=== PATIENT | male | born 1955 | race Caucasian/White ===

== ENCOUNTER 2018-08-03 18:00 | Observation (INO) | payer OTHER ==
[2018-08-03 18:00] VITALS: BMI 31.4
[2018-08-03] MEDS ORDERED: Sodium Chloride 0.9% 1,000 ML IV ONE (20:01)
[2018-08-03] MEDS ORDERED: SODIUM CHLORIDE 0.9% ONE (20:18)
[2018-08-03 20:23] LABS: BASO # 0.1 K/uL (0.0-0.2); BASO % 0.9 % (0.0-2.0); EOS # 1.5 K/uL (0.0-0.7); EOS % 10.9 % (0.0-4.0); HEMOGLOBIN 14.8 g/dL (12.0-18.0); LYMPH # 4.6 K/uL (1.0-4.3); LYMPH % 33.7 % (20.0-40.0); MEAN CELL VOLUME 93.4 fL (80.0-94.0); MEAN CORPUSCULAR HEMOGLOBIN 30.7 pg (27.0-31.0); MEAN CORPUSCULAR HGB CONC 32.9 g/dL (33.0-37.0); MEAN PLATELET VOLUME 8.4 fL (7.2-11.7); MONO % 7.2 % (0.0-10.0); NEUT # 6.5 K/uL (1.8-7.0); NEUT % 47.3 % (50.0-75.0); NRBC % 0.1 % (0.0-2.0); RBC 4.83 Mil/uL (4.40-5.90); RED CELL DISTRIBUTION WIDTH 14.2 % (11.5-14.5); WHITE BLOOD COUNT 13.7 K/uL (4.8-10.8)
[2018-08-03 20:32] LABS: SQUAMOUS EPITHIAL < 1 /hpf (0-5); URINE AMORPHOUS SEDIMENT FEW /ul (<OCC); URINE BILIRUBIN NEGATIVE (NEGATIVE); URINE BLOOD NEGATIVE (NEGATIVE); URINE CLARITY Clear (Clear); URINE COLOR Yellow (YELLOW); URINE GLUCOSE (UA) NORMAL (Normal); URINE LEUKOCYTE ESTERASE NEG Leu/uL (Negative); URINE PROTEIN NEGATIVE (NEGATIVE); URINE UROBILINOGEN NORMAL mg/dL (0.2-1.0)
[2018-08-03 20:35] LABS: ALB/GLOB RATIO 1.3 (1.0-2.1); ALBUMIN 4.5 g/dL (3.5-5.0); ALT/SGPT 107 U/L (21-72); AST/SGOT 72 U/L (17-59); BLOOD UREA NITROGEN 13 mg/dL (9-20); CALCIUM 10.1 mg/dl (8.6-10.4); GFR NON-AFRICAN AMERICAN > 60; LIPASE 87 U/L (23-300)
--- NOTE | 2018-08-03 21:02 | C.PDOC ---
History Of Present Illness 63 year old male presents to ED with complaint of left sided flank and abdominal pain that he has had for months, but has worsened in the past 2 days. Patient states that he has not been eating much, but has still been gaining weight. Patient states that he snores at night and has presumed sleep apnea. Patient denies nausea, vomiting, diarrhea, fever, chills, and diaphoresis. Time Seen by Provider: 08/03/18 19:52 Chief Complaint (Nursing): Abdominal Pain History Per: Patient History/Exam Limitations: no limitations Onset/Duration Of Symptoms: Days (2) Current Symptoms Are (Timing): Still Present Location Of Pain/Discomfort: LUQ, LLQ, Other (left sided flank pain ) Quality Of Discomfort: "Pain" Associated Symptoms: denies: Fever, Chills, Nausea, Diarrhea Exacerbating Factors: None Alleviating Factors: None Past Medical History Reviewed: Historical Data, Nursing Documentation, Vital Signs Vital Signs: Last Vital Signs Temp 98.2 F 08/03/18 18:25 Pulse 96 H 08/03/18 18:25 Resp 20 08/03/18 18:25 BP 162/94 H 08/03/18 18:25 Pulse Ox 95 08/03/18 18:25 - Medical History PMH: HTN Denies: Chronic Kidney Disease Surgical History: No Surg Hx Family History: States: Unknown Family Hx - Social History Hx Tobacco Use: No Hx Alcohol Use: No Hx Substance Use: No - Immunization History Hx Tetanus Toxoid Vaccination: Yes Hx Influenza Vaccination: Yes Hx Pneumococcal Vaccination: No Review Of Systems Constitutional: Positive for: Other (decreased appetite and weight gain ). Negative for: Fever, Chills, Weakness Gastrointestinal: Positive for: Abdominal Pain (left sided abdominal and left sided flank pain ). Negative for: Nausea, Vomiting Neurological: Negative for: Weakness, Numbness, Dizziness Physical Exam - Physical Exam Appears: Non-toxic, Other (obese, male; mild distress) Skin: Normal Color, Warm, Dry Head: Atraumatic, Normacephalic Neck: Normal ROM, Supple Chest: Symmetrical, No Deformity Cardiovascular: Rhythm Regular, No Murmur Respiratory: No Accessory Muscle Use Gastrointestinal/Abdominal: Tenderness (left lateral tenderness) Extremity: Capillary Refill (<2 seconds) Neurological/Psych: Oriented x3, Normal Speech, Normal Cognition ED Course And Treatment - Laboratory Results Result Diagrams: 08/03/18 20:16 08/03/18 20:16 Lab Results: Total Bilirubin 0.3 mg/dL (0.2-1.3) 08/03/18 20:16 AST 72 U/L (17-59) H 08/03/18 20:16 ALT 107 U/L (21-72) H 08/03/18 20:16 Alkaline Phosphatase 100 U/L (38-126) 08/03/18 20:16 Total Protein 7.9 g/dL (6.3-8.3) 08/03/18 20:16 Albumin 4.5 g/dL (3.5-5.0) 08/03/18 20:16 Globulin 3.4 gm/dL (2.2-3.9) 08/03/18 20:16 Albumin/Globulin Ratio 1.3 (1.0-2.1) 08/03/18 20:16 Lipase 87 U/L (23-300) 08/03/18 20:16 Urine Color Yellow (YELLOW) 08/03/18 20:16 Urine Clarity Clear (Clear) 08/03/18 20:16 Urine pH 7.0 (5.0-8.0) 08/03/18 20:16 Ur Specific [place] 1.010 (1.003-1.030) 08/03/18 20:16 Urine Protein Negative mg/dL (NEGATIVE) 08/03/18 20:16 Urine Glucose (UA) Normal mg/dL (Normal) 08/03/18 20:16 Urine Ketones Negative mg/dL (NEGATIVE) 08/03/18 20:16 Urine Blood Negative (NEGATIVE) 08/03/18 20:16 Urine Nitrate Negative (NEGATIVE) 08/03/18 20:16 Urine Bilirubin Negative (NEGATIVE) 08/03/18 20:16 Urine Urobilinogen Normal mg/dL (0.2-1.0) 08/03/18 20:16 Ur Leukocyte Esterase Neg [place]/uL (Negative) 08/03/18 20:16 Urine WBC (Auto) 1 /hpf (0-5) 08/03/18 20:16 Urine RBC (Auto) 2 /hpf (0-3) 08/03/18 20:16 Ur Squamous Epith Cells < 1 /hpf (0-5) 08/03/18 20:16 Amorphous Sediment Few /ul (<OCC) H 08/03/18 20:16 Lab Interpretation: Abnormal O2 Sat by Pulse Oximetry: 95 (in RA) Pulse Ox Interpretation: Normal - Radiology CXR: Interpreted by Me CXR Interpretation: Yes: No Acute Disease - Other Rad abd x 2 X-Ray: Interpreted by Me (+ increased stool R colon) Progress Note: Labs ordered with CMP, UA, and lipase. Obstructive series ordered for patient. Patient given IV fluids and Toradol IVP. Reevaluation Time: 00:54 Reassessment Condition: Improved - Physician Consult Information Outcome Of Conversation: 0100: d/w Hospitalist, Dr. Garcia, covering self-pay pts. ok to admit. Medical Decision Making Medical Decision Making: acute on chronic iliitis. ? infectuous zosyn started empirically. Disposition Doctor Will See Patient In The: Hospital Counseled Patient/Family Regarding: Studies Performed, Diagnosis - Disposition Disposition: HOSPITALIZED Disposition Time: 00:55 Condition: GOOD Forms: [facility] (Vietnamese) - Clinical Impression Clinical Impression: Abdominal colic - Scribe Statement The provider has reviewed the documentation as recorded by the Scribe (Yanni Buenrostro) All medical record entries made by the Scribe were at my direction and personally dictated by me. I have reviewed the chart and agree that the record accurately reflects my personal performance of the history, physical exam, medical decision making, and the department course for this patient. I have also personally directed, reviewed, and agree with the discharge instructions and disposition.
[2018-08-03] MEDS ORDERED: Iodixanol 320 MG/ML 100 ML BOTTLE IV ONE (22:02)
[2018-08-04] MEDS ORDERED: Piperacillin/Tazobact 3.375 gm 100 ML IV STA (00:36)
--- NOTE | 2018-08-04 01:28 | CP.PCM.HP ---
<Clari Kaur P - Last Filed: 08/04/18 04:07> History of Present Illness - History of Present Illness History of Present Illness: H&P for Dr. Garcia. HPI: 63 year old male with PMHx of HTN presents to the ED for worsening L flank and LUQ abdominal pain. Patient states he's had the pain intermittently for 3 months but it became constant one week ago and severely worsened to 9/10 pain in the last 2 days. Pain is described as throbbing. It worsens with eating, drinking and movement. Treatment with Tylenol provided minimal improvement. Patient also complains of dysuria and dark/black stool. Patient denies fever, chills, nausea, vomiting, diarrhea, constipation, hematochezia, hematemesis, hematuria. PMHx: HTN PSHx: Ventral hernia 2007 Meds: None Allergies: NKDA FamHx: Mother of uterine cancer SocHx: Denies tobacco, alcohol and illict drug use. Works for a [email or web address]. Lives with and 2 daughters. PMD: Dr. Fletcher Review of Systems: -Gen: No fever, No chills, No headache, No lethargy, No weakness. -HEENT: No dizziness, No change in vision, No change in hearing, No sore throat, No dysphagia, No nasal congestion, No mucous. -Cardio: No chest pain, No palpitations, No lower extremity edema, No orthopnea. -Resp: No cough, No dyspnea, No hemoptysis, No wheezing, No pain on inspiration. -GI: + abdominal pain, +dark stool, No nausea/vomiting, No diarrhea/constipation, No hematochezia, No hematemesis. -: + dysuria, No urinary freq, No incontinence, No hematuria, No change in urinary stream. -MSK: No muscle weakness, No radiating pain. -Skin: No itching, No rash, No lesions. -Neuro: No confusion, No numbness, No tingling, No focal weakness, No syncope. -Psych: No anxiety, No depression, No H/I, No S/I, No hallucinations. Present on Admission - Present on Admission Any Indicators Present on Admission: No Past Patient History - Past Medical History & Family History Past Medical History?: Yes - Past Social History Smoking Status: Never Smoked - CARDIAC Hx Hypertension: Yes - PULMONARY Hx Respiratory Disorders: No - NEUROLOGICAL Hx Neurological Disorder: No - HEENT Hx HEENT Problems: No - RENAL Hx Chronic Kidney Disease: No - ENDOCRINE/METABOLIC Hx Endocrine Disorders: No - HEMATOLOGICAL/ONCOLOGICAL Hx Blood Disorders: No - INTEGUMENTARY Hx Dermatological Problems: No - MUSCULOSKELETAL/RHEUMATOLOGICAL Hx Musculoskeletal Disorders: No Hx Falls: No - GASTROINTESTINAL Hx Gastrointestinal Disorders: No - GENITOURINARY/GYNECOLOGICAL Hx Genitourinary Disorders: No - PSYCHIATRIC Hx Substance Use: No - SURGICAL HISTORY Hx Surgeries: Yes Hx Herniorrhaphy: Yes - ANESTHESIA Hx Anesthesia: Yes Hx Anesthesia Reactions: No Hx Malignant Hyperthermia: No Meds Allergies/Adverse Reactions: Allergies Allergy/AdvReac Type Severity Reaction Status Date / Time No Known Allergies Allergy Verified 08/03/18 18:59 Physical Exam - Constitutional Appears: Non-toxic, No Acute Distress - Head Exam Head Exam: ATRAUMATIC, NORMOCEPHALIC - Eye Exam Eye Exam: EOMI, Normal appearance - ENT Exam ENT Exam: Mucous Membranes Moist - Neck Exam Neck exam: Positive for: Full Rom, Normal Inspection - Respiratory Exam Respiratory Exam: Clear to Auscultation Bilateral. absent: Rales, Rhonchi, Wheezes - Cardiovascular Exam Cardiovascular Exam: REGULAR RHYTHM, +S1, +S2 - GI/Abdominal Exam GI & Abdominal Exam: Guarding, Normal Bowel Sounds, Soft, Tenderness (LUQ). absent: Distended, Rebound, Rigid - Rectal Exam Rectal Exam: NORMAL INSPECTION Additional comments: Light brown stool, guaiac negative - Extremities Exam Extremities exam: Positive for: full ROM, normal inspection, pedal pulses present. Negative for: tenderness - Neurological Exam Neurological exam: Alert, CN II-XII Intact, Oriented x3 - Psychiatric Exam Psychiatric exam: Normal Affect - Skin Skin Exam: Dry, Normal Color, Warm Results - Vital Signs Recent Vital Signs: Last Vital Signs Temp 98.2 F 08/03/18 23:59 Pulse 85 08/03/18 23:59 Resp 16 08/03/18 23:59 BP 143/95 H 08/03/18 23:59 Pulse Ox 95 08/04/18 00:56 - Labs Result Diagrams: 08/03/18 20:16 08/03/18 20:16 Labs: Laboratory Results - last 24 hr 08/03/18 08/03/18 08/03/18 20:16 20:16 20:16 WBC 13.7 H RBC 4.83 Hgb 14.8 Hct 45.1 MCV 93.4 D MCH 30.7 MCHC 32.9 L RDW 14.2 Plt Count 226 MPV 8.4 Neut % (Auto) 47.3 L Lymph % (Auto) 33.7 [place] % (Auto) 7.2 Eos % (Auto) 10.9 H Baso % (Auto) 0.9 Neut # (Auto) 6.5 Lymph # (Auto) 4.6 H [place] # (Auto) 1.0 H Eos # (Auto) 1.5 H Baso # (Auto) 0.1 Sodium 139 Potassium 3.6 Chloride 102 Carbon Dioxide 31 H Anion Gap 11 BUN 13 Creatinine 0.9 Est GFR ( Amer) > 60 Est GFR (Non-Af Amer) > 60 Random Glucose 138 H D Calcium 10.1 Total Bilirubin 0.3 AST 72 H ALT 107 H Alkaline Phosphatase 100 Total Protein 7.9 Albumin 4.5 Globulin 3.4 Albumin/Globulin Ratio 1.3 Lipase 87 Urine Color Yellow Urine Clarity Clear Urine pH 7.0 Ur Specific [place] 1.010 Urine Protein Negative Urine Glucose (UA) Normal Urine Ketones Negative Urine Blood Negative Urine Nitrate Negative Urine Bilirubin Negative Urine Urobilinogen Normal Ur Leukocyte Esterase Neg Urine WBC (Auto) 1 Urine RBC (Auto) 2 Ur Squamous Epith Cells < 1 Amorphous Sediment Few H Assessment & Plan - Assessment and Plan (Free Text) Assessment: 63 year old male with PMHx of HTN presents admitted for ileitis Plan: Ileitis CT abdomen: mucosal wall thickening and fluid in lumen seen within the ileum. f/u official read Ciprofloxacin 500mg PO BID Metronidazole 500mg IVP Q8H Morphine 2mg IVP Q4H PRN pain Tylenol 650mg Q6H PRN pain/fever Hx of HTN Does not take any home meds Start HCTZ 12.5mg PO daily PPx Heparin 5000 SC Q8H SCD Florastor 250 BID Liquid diet, advance as tolerated Case discussed with Dr. Radha Kaur, PGY-1 <Nas Garcia - Last Filed: 08/04/18 06:15> Results - Vital Signs Recent Vital Signs: Last Vital Signs Temp 97.8 F 08/04/18 03:22 Pulse 71 08/04/18 03:22 Resp 18 08/04/18 03:22 BP 154/98 H 08/04/18 03:22 Pulse Ox 93 L 08/04/18 03:22 - Labs Result Diagrams: 08/03/18 20:16 08/03/18 20:16 Labs: Laboratory Results - last 24 hr 08/03/18 08/03/18 08/03/18 20:16 20:16 20:16 WBC 13.7 H RBC 4.83 Hgb 14.8 Hct 45.1 MCV 93.4 D MCH 30.7 MCHC 32.9 L RDW 14.2 Plt Count 226 MPV 8.4 Neut % (Auto) 47.3 L Lymph % (Auto) 33.7 [place] % (Auto) 7.2 Eos % (Auto) 10.9 H Baso % (Auto) 0.9 Neut # (Auto) 6.5 Lymph # (Auto) 4.6 H [place] # (Auto) 1.0 H Eos # (Auto) 1.5 H Baso # (Auto) 0.1 Sodium 139 Potassium 3.6 Chloride 102 Carbon Dioxide 31 H Anion Gap 11 BUN 13 Creatinine 0.9 Est GFR ( Amer) > 60 Est GFR (Non-Af Amer) > 60 Random Glucose 138 H D Calcium 10.1 Total Bilirubin 0.3 AST 72 H ALT 107 H Alkaline Phosphatase 100 Total Protein 7.9 Albumin 4.5 Globulin 3.4 Albumin/Globulin Ratio 1.3 Lipase 87 Urine Color Yellow Urine Clarity Clear Urine pH 7.0 Ur Specific [place] 1.010 Urine Protein Negative Urine Glucose (UA) Normal Urine Ketones Negative Urine Blood Negative Urine Nitrate Negative Urine Bilirubin Negative Urine Urobilinogen Normal Ur Leukocyte Esterase Neg Urine WBC (Auto) 1 Urine RBC (Auto) 2 Ur Squamous Epith Cells < 1 Amorphous Sediment Few H Assessment & Plan - Date & Time Date: 08/04/18 (I have seen and examined the patient. I agree with the findings and plan of care as documented by Dr. Kaur. Patient with ileitis. Cipro and Flagyl. Symptomatic treamtent. Advance diet as tolerated. History of hypertension. Continue home meds. Monitor for acute changes.) Time: 06:14 Attending/Attestation - Attestation I have personally seen and examined this patient.: Yes I have fully participated in the care of the patient.: Yes I have reviewed all pertinent clinical information: Yes
[2018-08-04] MEDS: metroNIDAZOLE IV 500 mg/100 ml 500 MG/100 ML BAG IVPB SCH ×4 (05:21→19:21)
--- NOTE | 2018-08-04 08:35 | CT ---
Date of service: 08/03/2018 PROCEDURE: CT Abdomen and Pelvis with contrast HISTORY: acute on chronic L abd pain COMPARISON: Comparison is made with 04/11/2016 TECHNIQUE: Contrast dose: 100 mL of Visipaque 320 intravenously. Radiation dose: Total exam DLP = 1075.49 mGy-cm. This CT exam was performed using one or more of the following dose reduction techniques: Automated exposure control, adjustment of the mA and/or kV according to patient size, and/or use of iterative reconstruction technique. FINDINGS: LOWER THORAX: Again noted is focal opacity along the left fissure likely represents scar tissue. No evidence of pleural effusion or cardiomegaly. LIVER: Mild to moderate hepatomegaly and moderate hepatic steatosis are again noted. GALLBLADDER AND BILE DUCTS: Gallstones without evidence of acute cholecystitis. PANCREAS: Unremarkable. No gross lesion or ductal dilatation. SPLEEN: Again noted is linear calcification at the border of the spleen. ADRENALS: Unremarkable. No mass. KIDNEYS AND URETERS: Unremarkable. No hydronephrosis. No solid mass. VASCULATURE: Unremarkable. No aortic aneurysm. No aortic atherosclerotic calcification or mural plaque present. BOWEL: Wall thickening of the distal small bowel loops is noted suspicious for enteritis.. No evidence of high-grade bowel obstruction. APPENDIX: No evidence of appendicitis. PERITONEUM: Unremarkable. No free fluid. No free air. LYMPH NODES: Unremarkable. No enlarged lymph nodes. BLADDER: Unremarkable. REPRODUCTIVE: Unremarkable. BONES: No acute fracture. OTHER FINDINGS: Again noted are bilateral fat containing inguinal hernias. IMPRESSION: Of gallstone without evidence of acute cholecystitis. Distal small bowel wall thickening suspicious for enteritis. Otherwise no significant interval changes. Preliminary report contains concordant findings was submitted by [facility].
[2018-08-04 08:48] LABS: BASO # 0.1 K/uL (0.0-0.2); BASO % 0.9 % (0.0-2.0); EOS # 1.5 K/uL (0.0-0.7); EOS % 14.1 % (0.0-4.0); HEMOGLOBIN 15.1 g/dL (12.0-18.0); LYMPH # 3.3 K/uL (1.0-4.3); LYMPH % 31.4 % (20.0-40.0); MEAN CELL VOLUME 93.6 fL (80.0-94.0); MEAN CORPUSCULAR HEMOGLOBIN 31.7 pg (27.0-31.0); MEAN CORPUSCULAR HGB CONC 33.9 g/dL (33.0-37.0); MEAN PLATELET VOLUME 8.1 fL (7.2-11.7); MONO # 0.7 K/uL (0.0-0.8); MONO % 6.9 % (0.0-10.0); NEUT # 4.9 K/uL (1.8-7.0); NEUT % 46.7 % (50.0-75.0); RBC 4.75 Mil/uL (4.40-5.90); RED CELL DISTRIBUTION WIDTH 14.2 % (11.5-14.5); WHITE BLOOD COUNT 10.5 K/uL (4.8-10.8)
[2018-08-04 08:49] LABS: ALB/GLOB RATIO 1.3 (1.0-2.1); ALBUMIN 4.1 g/dL (3.5-5.0); ALT/SGPT 92 U/L (21-72); AST/SGOT 76 U/L (17-59); BLOOD UREA NITROGEN 11 mg/dL (9-20); CALCIUM 9.3 mg/dl (8.6-10.4); GFR NON-AFRICAN AMERICAN > 60
--- NOTE | 2018-08-04 09:18 | CP.PCM.PN ---
<Pravin Kulkarniy - Last Filed: 08/04/18 15:53> Subjective - Date & Time of Evaluation Date of Evaluation: 08/04/18 Time of Evaluation: 09:45 - Subjective Subjective: Medicine progress note for Dr. Hurtado Pt seen and examine at bedside. Pt is resting comfortably. Pain is well controlled, but he continues to have LUQ abdominal pain. He is tolerating liquid diet. At this time he denies fever, chills, chest pain, sob, n/v/d, melena, hematochezia. Objective - Vital Signs/Intake and Output Vital Signs (last 24 hours): Temp Pulse Resp BP Pulse Ox 97.3 F L 72 20 147/92 H 94 L 08/04/18 07:45 08/04/18 07:45 08/04/18 07:45 08/04/18 07:45 08/04/18 07:45 Intake and Output: 08/04/18 08/04/18 06:59 18:59 Intake Total 200 Balance 200 - Medications Medications: Current Medications Acetaminophen (Tylenol 325mg Tab) 650 mg PO Q6 PRN PRN Reason: Pain, moderate (4-7) Heparin Sodium (Porcine) (Heparin) 5,000 units SC Q8 [facility]BY Last Admin: 08/04/18 05:23 Dose: 5,000 units Hydrochlorothiazide (Microzide) 12.5 mg PO DAILY [facility] Metronidazole (Flagyl) 500 mg in 100 mls @ 100 mls/hr IVPB Q8H [facility]; Protocol Last Admin: 08/04/18 05:21 Dose: 100 mls/hr Ciprofloxacin (Cipro 400mg/200ml Dsw) 400 mg in 200 mls @ 133 mls/hr IVPB Q12H GABBY; Protocol Morphine Sulfate (Morphine) 2 mg IVP Q4H PRN PRN Reason: Pain, severe (8-10) Last Admin: 08/04/18 08:45 Dose: 2 mg Saccharomyces Boulardii (Florastor) 250 mg PO BID GABBY - Labs Labs: 08/04/18 08:26 08/04/18 08:26 - Additional Findings Additional findings: - Constitutional Appears: Non-toxic, No Acute Distress - Head Exam Head Exam: ATRAUMATIC, NORMOCEPHALIC - Eye Exam Eye Exam: EOMI, PERRL. absent: Scleral icterus - ENT Exam ENT Exam: Mucous Membranes Moist - Neck Exam Neck exam: Positive for: Full Rom, Normal Inspection - Respiratory Exam Respiratory Exam: Clear to Auscultation Bilateral. absent: Rales, Rhonchi, Wheezes - Cardiovascular Exam Cardiovascular Exam: RRR, +S1, +S2. absent: Gallop, Rubs, Tachycardia - GI/Abdominal Exam GI & Abdominal Exam: Distended (baseline as per pt), Normal Bowel Sounds, Organomegaly, Soft, Tenderness (LUQ and epigastric). absent: Firm, Guarding, Rebound, Rigid - Extremities Exam Extremities exam: Positive for: normal inspection. Negative for: pedal edema - Neurological Exam Neurological exam: Alert, Oriented x3 - Psychiatric Exam Psychiatric exam: Normal Affect, Normal Mood - Skin Skin Exam: Dry, Intact, Normal Color, Warm Assessment and Plan - Assessment and Plan (Free Text) Assessment: 63 year old male with PMH of HTN, cholelithiasis, and Obesity presenting with a bdominal pain. CT A/P IV contrast showing thickening of distal small bowel loops and gallstones without gallbladder wall thickening or biliary dilatation. Plan: Abdominal pain Ileitis on CT Leukocytosis at 13.7 on admission, likely reactive as it resolved today. Pt without fever, tachycardia CT A/P IV contrast showing thickening of distal small bowel loops and gallstones without gallbladder wall thickening or biliary dilatation. Ciprofloxacin 400mg IVPB BID Metronidazole 500mg IVPB Q8H Morphine 2mg IVP Q4H PRN pain Tylenol 650mg Q6H PRN pain/fever GI, Dr. Cowan, consulted. * Patient with pain and elevated white count likely to be infectious. Chronic elevation of LFT's not previously worked up most likely due to NAFLD/[place]. r/o underliying chronic viral, autoimmune or other chronic liver disease. Given upper abdominal pain and NSAID use, h/o PUD in the past would r/o PUD, gastritis as source of upper abdominal pain. Doubt cholecystitis even though gallstones seen on CT SCan. F/u Cdiff, stool culture, and O&P Transaminitis Abdominal US complete shows cholelithiasis. Echogenic liver. Splenomegaly. F/u DANETTE, Hepatitis panel, ASMA, AMA, ceruloplasmin, LKM, iron, TIBC, ferritin Eosinophilia Etiology unknown at this time Potential infectious/autoimmune source Pt afebrile, not tachycardic, leukocytosis resolved 1.5, twice the limit of normal F/u total eosinophil count F/u stool O and P, autoimmune studies as above Hx of HTN Does not take any home meds HCTZ 12.5mg PO daily PPx Protonix 40 mg PO ACB Heparin 5000 SC Q8H SCD Florastor 250 BID NPO past midnight for EGD in am Dispo: NPO past midnight for EGD in am. F/u transaminitis and ileitis lab work up. <Chelsea Hurtado V - Last Filed: 08/04/18 22:58> Objective - Vital Signs/Intake and Output Vital Signs (last 24 hours): Temp Pulse Resp BP Pulse Ox 97.7 F 74 20 147/86 96 08/04/18 16:28 08/04/18 16:28 08/04/18 16:28 08/04/18 16:28 08/04/18 16:28 Intake and Output: 08/04/18 08/05/18 18:59 06:59 Intake Total 460 Balance 460 - Medications Medications: Current Medications Acetaminophen (Tylenol 325mg Tab) 650 mg PO Q6 PRN PRN Reason: Pain, moderate (4-7) Heparin Sodium (Porcine) (Heparin) 5,000 units SC Q8 GABBY Last Admin: 08/04/18 21:09 Dose: 5,000 units Hydrochlorothiazide (Microzide) 12.5 mg PO DAILY [facility] Last Admin: 08/04/18 10:37 Dose: 12.5 mg Metronidazole (Flagyl) 500 mg in 100 mls @ 100 mls/hr IVPB Q8H GABBY; Protocol Last Admin: 08/04/18 19:21 Dose: 100 mls/hr Ciprofloxacin (Cipro 400mg/200ml Dsw) 400 mg in 200 mls @ 133 mls/hr IVPB Q12H GABBY; Protocol Last Admin: 08/04/18 20:43 Dose: 133 mls/hr Sodium Chloride (Sodium Chloride 0.9%) 1,000 mls @ 130 mls/hr IV .[id number] [facility] Last Admin: 08/04/18 21:08 Dose: 130 mls/hr Influenza Virus Vaccine (Flucelvax Quad [id number] Syr) 60 mcg IM .ONCE ONE Stop: 08/05/18 10:01 Morphine Sulfate (Morphine) 2 mg IVP Q4H PRN PRN Reason: Pain, severe (8-10) Last Admin: 08/04/18 14:12 Dose: 2 mg Ondansetron HCl (Zofran Inj) 4 mg IVP Q6 PRN PRN Reason: Nausea/Vomiting Last Admin: 08/04/18 20:42 Dose: 4 mg Pantoprazole Sodium (Protonix Inj) 40 mg IVP 0700 GABBY Pneumococcal Polyvalent Vaccine (Pneumovax 23 Vaccine) 0.5 ml IM .ONCE ONE Stop: 08/05/18 10:01 Saccharomyces Boulardii (Florastor) 250 mg PO BID GABBY Last Admin: 08/04/18 17:41 Dose: 250 mg - Labs Labs: 08/04/18 08:26 08/04/18 08:26 PT 12.4 SECONDS (9.7-12.2) H 08/04/18 10:11 INR 1.1 08/04/18 10:11 Attending/Attestation - Attestation I have personally seen and examined this patient.: Yes I have fully participated in the care of the patient.: Yes I have reviewed all pertinent clinical information, including history, physical exam and plan: Yes Notes (Text): Patient seen, examined and case discussed with resident medical officer. Agree with assessment and plan by the resident. Patient is on empiric IV abx GI is on consult Patient is NPO for EGD tomorrow. Follow-up stool studies.
--- NOTE | 2018-08-04 10:04 | CP.PCM.CON ---
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 Dasilva 63 year old male with PMH of HTN, cholelithiasis, and Obesity presenting with abdominal pain. Patient notes constant, progressive left upper abdomen pain for three months. Notes worsening of symptoms to severe discomfort affecting activities of daily living for the last week and not being able to walk properly due to th epain for the last two days. Associated heartburn,acid reflux, and bloating. Denies postprandial pain, nausea, vomiting, indigestion, belching, diarrhea, constipation, melena, hematochezia, dysuria, polyuria, or unintentional weight loss. Notes twice daily acetaminophen use for first month of abdominal pain and transition to motrin use twice daily for the last month due to worsening of abdominal pain without complete relief. Denies alcohol use, recent fatty meals, travel, new medications, sick contacts, skin rashes, eye pain/redness, or kidney stones. Notes similar abdominal pain in last three years leading to prior ER visits and CT A/P (06/2015 and 04/2016) showing gallstones and hepatic steatosis. Endorses EGD ten years ago to show a gastric ulcer without history of H. pylori. He has since been on Prilosec twice daily but stopped its use six months ago in addition to stopping anti-hypertensive medication. No prior colonoscopy. Family History- denies stomach cancer, colon cancer Social History- denies tobacco, alcohol, or illicit drug use Surgical History-ventral hernia repair Review of Systems - Review of Systems Review of Systems: 12-point review of systems negative except for as above Past Patient History - Past Medical History & Family History Past Medical History?: Yes - Past Social History Smoking Status: Never Smoked - CARDIAC Hx Hypertension: Yes - PULMONARY Hx Respiratory Disorders: No - NEUROLOGICAL Hx Neurological Disorder: No - HEENT Hx HEENT Problems: No - RENAL Hx Chronic Kidney Disease: No - ENDOCRINE/METABOLIC Hx Endocrine Disorders: No - HEMATOLOGICAL/ONCOLOGICAL Hx Blood Disorders: No - INTEGUMENTARY Hx Dermatological Problems: No - MUSCULOSKELETAL/RHEUMATOLOGICAL Hx Musculoskeletal Disorders: No Hx Falls: No - GASTROINTESTINAL Hx Gastrointestinal Disorders: No - GENITOURINARY/GYNECOLOGICAL Hx Genitourinary Disorders: No - PSYCHIATRIC Hx Substance Use: No - SURGICAL HISTORY Hx Surgeries: Yes Hx Herniorrhaphy: Yes - ANESTHESIA Hx Anesthesia: Yes Hx Anesthesia Reactions: No Hx Malignant Hyperthermia: No Meds Allergies/Adverse Reactions: Allergies Allergy/AdvReac Type Severity Reaction Status Date / Time No Known Allergies Allergy Verified 08/03/18 18:59 - Medications Medications: Current Medications Acetaminophen (Tylenol 325mg Tab) 650 mg PO Q6 PRN PRN Reason: Pain, moderate (4-7) Heparin Sodium (Porcine) (Heparin) 5,000 units SC Q8 [facility] Last Admin: 08/04/18 05:23 Dose: 5,000 units Hydrochlorothiazide (Microzide) 12.5 mg PO DAILY [facility] Metronidazole (Flagyl) 500 mg in 100 mls @ 100 mls/hr IVPB Q8H [facility]; Protocol Last Admin: 08/04/18 05:21 Dose: 100 mls/hr Ciprofloxacin (Cipro 400mg/200ml Dsw) 400 mg in 200 mls @ 133 mls/hr IVPB Q12H [facility]; Protocol Morphine Sulfate (Morphine) 2 mg IVP Q4H PRN PRN Reason: Pain, severe (8-10) Last Admin: 08/04/18 08:45 Dose: 2 mg Saccharomyces Boulardii (Florastor) 250 mg PO BID [facility] Physical Exam - Constitutional Appears: Non-toxic, No Acute Distress - Head Exam Head Exam: ATRAUMATIC, NORMOCEPHALIC - Eye Exam Eye Exam: EOMI, PERRL. absent: Scleral icterus Pupil Exam: PERRL. absent: Miosis, Mydriatic - ENT Exam ENT Exam: Mucous Membranes Moist, Normal Oropharynx - Neck Exam Neck exam: Positive for: Full Rom, Normal Inspection - Respiratory Exam Respiratory Exam: Clear to Auscultation Bilateral. absent: Rales, Rhonchi, Wheezes - Cardiovascular Exam Cardiovascular Exam: RRR, +S1, +S2. absent: Gallop, Rubs - GI/Abdominal Exam GI & Abdominal Exam: Distended, Normal Bowel Sounds, Organomegaly, Soft, Tenderness. absent: Firm, Guarding, Rebound, Rigid Additional comments: LUQ and epigastric tenderness to palpation - Extremities Exam Extremities exam: Positive for: normal inspection. Negative for: pedal edema - Neurological Exam Neurological exam: Alert, Oriented x3 - Psychiatric Exam Psychiatric exam: Normal Affect, Normal Mood - Skin Skin Exam: Dry, Intact, Normal Color, Warm Results - Vital Signs Recent Vital Signs: Last Vital Signs Temp 97.3 F L 08/04/18 07:45 Pulse 72 08/04/18 07:45 Resp 20 08/04/18 07:45 BP 147/92 H 08/04/18 07:45 Pulse Ox 94 L 08/04/18 07:45 - Labs Result Diagrams: 08/04/18 08:26 08/04/18 08:26 Labs: Laboratory Results - last 24 hr 08/03/18 08/03/18 08/03/18 20:16 20:16 20:16 WBC 13.7 H RBC 4.83 Hgb 14.8 Hct 45.1 MCV 93.4 D MCH 30.7 MCHC 32.9 L RDW 14.2 Plt Count 226 MPV 8.4 Neut % (Auto) 47.3 L Lymph % (Auto) 33.7 Curry % (Auto) 7.2 Eos % (Auto) 10.9 H Baso % (Auto) 0.9 Neut # (Auto) 6.5 Lymph # (Auto) 4.6 H Curry # (Auto) 1.0 H Eos # (Auto) 1.5 H Baso # (Auto) 0.1 Sodium 139 Potassium 3.6 Chloride 102 Carbon Dioxide 31 H Anion Gap 11 BUN 13 Creatinine 0.9 Est GFR ( Amer) > 60 Est GFR (Non-Af Amer) > 60 Random Glucose 138 H D Calcium 10.1 Total Bilirubin 0.3 AST 72 H ALT 107 H Alkaline Phosphatase 100 Total Protein 7.9 Albumin 4.5 Globulin 3.4 Albumin/Globulin Ratio 1.3 Lipase 87 Urine Color Yellow Urine Clarity Clear Urine pH 7.0 Ur Specific Carson 1.010 Urine Protein Negative Urine Glucose (UA) Normal Urine Ketones Negative Urine Blood Negative Urine Nitrate Negative Urine Bilirubin Negative Urine Urobilinogen Normal Ur Leukocyte Esterase Neg Urine WBC (Auto) 1 Urine RBC (Auto) 2 Ur Squamous Epith Cells < 1 Amorphous Sediment Few H 08/04/18 08/04/18 08:26 08:26 WBC 10.5 RBC 4.75 Hgb 15.1 Hct 44.5 MCV 93.6 MCH 31.7 H MCHC 33.9 RDW 14.2 Plt Count 218 MPV 8.1 Neut % (Auto) 46.7 L Lymph % (Auto) 31.4 Curry % (Auto) 6.9 Eos % (Auto) 14.1 H Baso % (Auto) 0.9 Neut # (Auto) 4.9 Lymph # (Auto) 3.3 Curry # (Auto) 0.7 Eos # (Auto) 1.5 H Baso # (Auto) 0.1 Sodium 138 Potassium 4.2 Chloride 103 Carbon Dioxide 31 H Anion Gap 8 L BUN 11 Creatinine 1.0 Est GFR ( Amer) > 60 Est GFR (Non-Af Amer) > 60 Random Glucose 98 D Calcium 9.3 Total Bilirubin 0.7 AST 76 H ALT 92 H Alkaline Phosphatase 75 Total Protein 7.1 Albumin 4.1 Globulin 3.0 Albumin/Globulin Ratio 1.3 Lipase Urine Color Urine Clarity Urine pH Ur Specific Carson Urine Protein Urine Glucose (UA) Urine Ketones Urine Blood Urine Nitrate Urine Bilirubin Urine Urobilinogen Ur Leukocyte Esterase Urine WBC (Auto) Urine RBC (Auto) Ur Squamous Epith Cells Amorphous Sediment Assessment & Plan - Assessment and Plan (Free Text) Assessment: 63 year old male with PMH of HTN, cholelithiasis, and Obesity presenting with abdominal pain. CT A/P IV contrast showing thickening of distal small bowel loops and gallstones without gallbladder wall thickening or biliary dilatation. Endorses EGD ten years ago showing a gastric ulcer without history of H. pylori. No prior colonoscopy. Plan: -chronic Ibuprofen use, dyspepsia, and abdominal pain -will benefit from EGD to assess for peptic ulcer disease, H. pylori, and proximal IBD -will schedule for EGD tomorrow , 08/05 -NPO after midnight -distal small bowel thickening- possible underlying infectious enteritis -continue Cipro and flagyl -obtain stool workup - Cdiff, stool culture, and O&P -tolerating clear liquid diet - chronic elevated AST/ALT since 2016- will benefit from Hepatitis screening and autoimmune serologies with follow up with primary care -DANETTE, Hepatitis panel, ASMA, AMA, ceruloplasmin, LKM, iron, TIBC, ferritin -biliary colic less likely is etiology of abdominal pain with lack of characteristic postprandial pain or RUQ pain with radiation -noted to have recurrent abdominal pain and known history of gallstones since 2016 -consider on differential if symptoms persist despite GI workup -will benefit from outpatient colonoscopy for intraluminal assessment for colorectal cancer screening with terminal ileum evaluation Case discussed with Dr. Dasilva <Sky Dasilva - Last Filed: 08/04/18 11:10> Meds - Medications Medications: Current Medications Acetaminophen (Tylenol 325mg Tab) 650 mg PO Q6 PRN PRN Reason: Pain, moderate (4-7) Heparin Sodium (Porcine) (Heparin) 5,000 units SC Q8 [facility] Last Admin: 08/04/18 05:23 Dose: 5,000 units Hydrochlorothiazide (Microzide) 12.5 mg PO DAILY [facility] Last Admin: 08/04/18 10:37 Dose: 12.5 mg Metronidazole (Flagyl) 500 mg in 100 mls @ 100 mls/hr IVPB Q8H [facility]; Protocol Last Admin: 08/04/18 05:21 Dose: 100 mls/hr Ciprofloxacin (Cipro 400mg/200ml Dsw) 400 mg in 200 mls @ 133 mls/hr IVPB Q12H [facility]; Protocol Last Admin: 08/04/18 10:37 Dose: 133 mls/hr Morphine Sulfate (Morphine) 2 mg IVP Q4H PRN PRN Reason: Pain, severe (8-10) Last Admin: 08/04/18 08:45 Dose: 2 mg Saccharomyces Boulardii (Florastor) 250 mg PO BID [facility] Last Admin: 08/04/18 10:38 Dose: 250 mg Results - Vital Signs Recent Vital Signs: Last Vital Signs Temp 97.3 F L 08/04/18 07:45 Pulse 72 08/04/18 07:45 Resp 20 08/04/18 07:45 BP 147/92 H 08/04/18 07:45 Pulse Ox 94 L 08/04/18 07:45 - Labs Result Diagrams: 08/04/18 08:26 08/04/18 08:26 Labs: Laboratory Results - last 24 hr 08/03/18 08/03/18 08/03/18 20:16 20:16 20:16 WBC 13.7 H RBC 4.83 Hgb 14.8 Hct 45.1 MCV 93.4 D MCH 30.7 MCHC 32.9 L RDW 14.2 Plt Count 226 MPV 8.4 Neut % (Auto) 47.3 L Lymph % (Auto) 33.7 Curry % (Auto) 7.2 Eos % (Auto) 10.9 H Baso % (Auto) 0.9 Neut # (Auto) 6.5 Lymph # (Auto) 4.6 H Curry # (Auto) 1.0 H Eos # (Auto) 1.5 H Baso # (Auto) 0.1 PT INR Sodium 139 Potassium 3.6 Chloride 102 Carbon Dioxide 31 H Anion Gap 11 BUN 13 Creatinine 0.9 Est GFR ( Amer) > 60 Est GFR (Non-Af Amer) > 60 Random Glucose 138 H D Calcium 10.1 Phosphorus Magnesium Total Bilirubin 0.3 AST 72 H ALT 107 H Alkaline Phosphatase 100 Total Protein 7.9 Albumin 4.5 Globulin 3.4 Albumin/Globulin Ratio 1.3 Lipase 87 Urine Color Yellow Urine Clarity Clear Urine pH 7.0 Ur Specific Carson 1.010 Urine Protein Negative Urine Glucose (UA) Normal Urine Ketones Negative Urine Blood Negative Urine Nitrate Negative Urine Bilirubin Negative Urine Urobilinogen Normal Ur Leukocyte Esterase Neg Urine WBC (Auto) 1 Urine RBC (Auto) 2 Ur Squamous Epith Cells < 1 Amorphous Sediment Few H Hepatitis A IgM Ab Hep Bs Antigen Hep B Core IgM Ab 08/04/18 08/04/18 08/04/18 08:26 08:26 10:11 WBC 10.5 RBC 4.75 Hgb 15.1 Hct 44.5 MCV 93.6 MCH 31.7 H MCHC 33.9 RDW 14.2 Plt Count 218 MPV 8.1 Neut % (Auto) 46.7 L Lymph % (Auto) 31.4 Curry % (Auto) 6.9 Eos % (Auto) 14.1 H Baso % (Auto) 0.9 Neut # (Auto) 4.9 Lymph # (Auto) 3.3 Curry # (Auto) 0.7 Eos # (Auto) 1.5 H Baso # (Auto) 0.1 PT INR Sodium 138 Potassium 4.2 Chloride 103 Carbon Dioxide 31 H Anion Gap 8 L BUN 11 Creatinine 1.0 Est GFR ( Amer) > 60 Est GFR (Non-Af Amer) > 60 Random Glucose 98 D Calcium 9.3 Phosphorus 3.1 Magnesium 2.2 Total Bilirubin 0.7 AST 76 H ALT 92 H Alkaline Phosphatase 75 Total Protein 7.1 Albumin 4.1 Globulin 3.0 Albumin/Globulin Ratio 1.3 Lipase Urine Color Urine Clarity Urine pH Ur Specific Carson Urine Protein Urine Glucose (UA) Urine Ketones Urine Blood Urine Nitrate Urine Bilirubin Urine Urobilinogen Ur Leukocyte Esterase Urine WBC (Auto) Urine RBC (Auto) Ur Squamous Epith Cells Amorphous Sediment Hepatitis A IgM Ab Negative Hep Bs Antigen Negative Hep B Core IgM Ab Negative 08/04/18 10:11 WBC RBC Hgb Hct MCV MCH MCHC RDW Plt Count MPV Neut % (Auto) Lymph % (Auto) Curry % (Auto) Eos % (Auto) Baso % (Auto) Neut # (Auto) Lymph # (Auto) Curry # (Auto) Eos # (Auto) Baso # (Auto) PT 12.4 H INR 1.1 Sodium Potassium Chloride Carbon Dioxide Anion Gap BUN Creatinine Est GFR ( Amer) Est GFR (Non-Af Amer) Random Glucose Calcium Phosphorus Magnesium Total Bilirubin AST ALT Alkaline Phosphatase Total Protein Albumin Globulin Albumin/Globulin Ratio Lipase Urine Color Urine Clarity Urine pH Ur Specific Carson Urine Protein Urine Glucose (UA) Urine Ketones Urine Blood Urine Nitrate Urine Bilirubin Urine Urobilinogen Ur Leukocyte Esterase Urine WBC (Auto) Urine RBC (Auto) Ur Squamous Epith Cells Amorphous Sediment Hepatitis A IgM Ab Hep Bs Antigen Hep B Core IgM Ab Attending/Attestation - Attestation I have personally seen and examined this patient.: Yes I have fully participated in the care of the patient.: Yes I have reviewed all pertinent clinical information: Yes Notes (Text): 08/04/18 11:07 Patient with pain and elevated white count likely to be infectious. Chronic elevation of LFT's not previously worked up most likely due to NAFLD/CALLAWAY. r/o underliying chronic viral, autoimmune or other chronic liver disease. Given upper abdominal pain and NSAID use, h/o PUD in the past would r/o PUD, gastritis as source of upper abdominal pain. Doubt cholecystitis even though gallstones seen on CT SCan. EGD in am IV Protonix Stool samples for microbiology, occult blood Viral markers and autoimmune markers and other markers of CLD Would defer colonoscopy to 4-8 weeks as outpatient when symptoms and white count have resolved.
[2018-08-04 10:21] LABS: INR 1.1; PROTHROMBIN TIME 12.4 SECONDS (9.7-12.2)
[2018-08-04] MEDS: Ciprofloxacin 400mg/200ml D5W 400 MG/200 ML BAG IVPB SCH ×2 (10:37→20:43)
[2018-08-04] MEDS: Saccharomyces Boulardi 250 mg Cap PO SCH ×2 (10:38→17:41)
[2018-08-04 11:00] LABS: HEPATITIS B SURFACE AG Negative (NEGATIVE)
[2018-08-04 11:06] LABS: HEPATITIS A IGM NEGATIVE (NEGATIVE); HEPATITIS B CORE AB NEGATIVE (NEGATIVE)
[2018-08-04] MEDS ORDERED: Pantoprazole 40 mg EC Tab PO SCH (11:15)
--- NOTE | 2018-08-04 11:15 | RAD ---
Date of service: 08/03/2018 PROCEDURE: Radiographs of the chest and abdomen (obstructive series) HISTORY: abd pain COMPARISON: No prior. TECHNIQUE: AP radiograph of the chest, with upright and supine radiographs of the abdomen. 3 views obtained. FINDINGS: CHEST: Lungs: Clear. Cardiovascular: Cardiomegaly. No aortic atherosclerotic calcification present Pleura: No pleural fluid. No pneumothorax. Other findings: None. ABDOMEN AND PELVIS: Bowel: Constipation without fecal impaction or obstruction. Free air: None. Bones: Unremarkable. Other findings: None. IMPRESSION: Constipation without obstruction. No visible free. No active pulmonary disease. Concordant results with the preliminary interpretation rendered by the emergency department physician procedure.
[2018-08-04 11:17] LABS: HEPATITIS C ANTIBODY NEGATIVE (NEGATIVE)
--- NOTE | 2018-08-04 13:51 | US ---
HISTORY: transaminitis COMPARISON: CT abdomen and pelvis with contrast performed 08/03/18 TECHNIQUE: Sonographic evaluation of the abdomen. FINDINGS: LIVER: Measures 15.0 cm in sagittal dimension. Echogenic liver may be seen in setting of hepatic parenchymal disease or fatty infiltration. No focal hepatic mass identified. The main portal vein appears patent with normal directional flow. No intrahepatic bile duct dilatation. GALLBLADDER: Gallstones. No gallbladder wall thickening. Negative sonographic Mcneill's sign as assessed by the machine pecan picker. COMMON BILE DUCT: Measures 4 mm. PANCREAS: Not well visualized. RIGHT KIDNEY: Measures 13.4 x 5.1 x 4.9cm. No obstructing calculus or hydronephrosis identified. LEFT KIDNEY: Measures 12.1 x 5.6 x 5.8cm. No obstructing calculus or hydronephrosis identified. SPLEEN: Measures approximately 13 cm. AORTA: Limited views appear unremarkable. IVC: Limited views appear unremarkable. OTHER FINDINGS: None. IMPRESSION: Cholelithiasis. Echogenic liver may be seen in setting of hepatic parenchymal disease or fatty infiltration. Splenomegaly.
[2018-08-04 14:28] LABS: IRON 136 ug/dL (49-181)
[2018-08-04 14:37] LABS: % IRON SATURATION 41 (20-55); TOTAL IRON BINDING CAPACITY 327 ug/dL (250-450)
[2018-08-04] MEDS: Sodium Chloride 0.9% 1,000 ML IV SCH (21:08)
[2018-08-05] MEDS: metroNIDAZOLE IV 500 mg/100 ml 500 MG/100 ML BAG IVPB SCH ×2 (02:14→11:58)
[2018-08-05] MEDS: Sodium Chloride 0.9% 1,000 ML IV SCH ×2 (05:06→12:38)
[2018-08-05 06:55] LABS: BASO # 0.1 K/uL (0.0-0.2); BASO % 0.6 % (0.0-2.0); EOS # 1.2 K/uL (0.0-0.7); EOS % 12.4 % (0.0-4.0); EOSINOPHIL COUNT 1.2 K/uL (0.0-0.7); HEMOGLOBIN 14.4 g/dL (12.0-18.0); LYMPH # 2.8 K/uL (1.0-4.3); LYMPH % 28.9 % (20.0-40.0); MEAN CELL VOLUME 93.3 fL (80.0-94.0); MEAN CORPUSCULAR HEMOGLOBIN 31.9 pg (27.0-31.0); MEAN CORPUSCULAR HGB CONC 34.2 g/dL (33.0-37.0); MONO # 0.7 K/uL (0.0-0.8); MONO % 7.6 % (0.0-10.0); NEUT # 4.8 K/uL (1.8-7.0); NEUT % 50.5 % (50.0-75.0); NRBC % 0.1 % (0.0-2.0); RBC 4.5 Mil/uL (4.40-5.90); RED CELL DISTRIBUTION WIDTH 14.2 % (11.5-14.5); WHITE BLOOD COUNT 9.6 K/uL (4.8-10.8)
[2018-08-05 07:12] LABS: ALB/GLOB RATIO 1.2 (1.0-2.1); ALBUMIN 3.7 g/dL (3.5-5.0); ALT/SGPT 88 U/L (21-72); AST/SGOT 67 U/L (17-59); BLOOD UREA NITROGEN 9 mg/dL (9-20); CALCIUM 8.7 mg/dl (8.6-10.4); GFR NON-AFRICAN AMERICAN > 60
--- NOTE | 2018-08-05 07:14 | CP.PCM.PN ---
Subjective - Date & Time of Evaluation Date of Evaluation: 08/05/18 Time of Evaluation: 08:45 - Subjective Subjective: Medicine progress note for Dr. Hurtado Pt seen and examined at bedside. Pt with 2 episodes of vomiting overnight, treated with zofran IV. Both episodes liquid, first was red due to cranberry juice, second was just liquid. He cannot provide other information about the vomiting. He states abdominal pain is improving, and so is abdominal distension. Denies fever, chills, chest pain, diarrhea, hematochezia, mlena, dysuria, hematuria. Endorses a headache, described as pressure behind the eyes, denies focal weakness, new numbness or tingling (chronic numbness and tingling to the bilateral hands), visual changes, dizziness. Objective - Vital Signs/Intake and Output Vital Signs (last 24 hours): Temp Pulse Resp BP Pulse Ox 97.9 F 82 20 110/72 96 08/05/18 00:00 08/05/18 00:00 08/05/18 00:00 08/05/18 00:00 08/05/18 03:49 Intake and Output: 08/05/18 08/05/18 06:59 18:59 Intake Total 500 Balance 500 - Medications Medications: Current Medications Acetaminophen (Tylenol 325mg Tab) 650 mg PO Q6 PRN PRN Reason: Pain, moderate (4-7) Heparin Sodium (Porcine) (Heparin) 5,000 units SC Q8 [facility] Last Admin: 08/05/18 05:12 Dose: 5,000 units Hydrochlorothiazide (Microzide) 12.5 mg PO DAILY [facility] Last Admin: 08/04/18 10:37 Dose: 12.5 mg Metronidazole (Flagyl) 500 mg in 100 mls @ 100 mls/hr IVPB Q8H [facility]; Protocol Last Admin: 08/05/18 02:14 Dose: 100 mls/hr Ciprofloxacin (Cipro 400mg/200ml Dsw) 400 mg in 200 mls @ 133 mls/hr IVPB Q12H [facility]; Protocol Last Admin: 08/04/18 20:43 Dose: 133 mls/hr Sodium Chloride (Sodium Chloride 0.9%) 1,000 mls @ 130 mls/hr IV .Q7H42M [facility] Last Admin: 08/05/18 05:06 Dose: 130 mls/hr Influenza Virus Vaccine (Flucelvax Quad [id number] Syr) 60 mcg IM .ONCE ONE Stop: 08/05/18 10:01 Morphine Sulfate (Morphine) 2 mg IVP Q4H PRN PRN Reason: Pain, severe (8-10) Last Admin: 08/04/18 14:12 Dose: 2 mg Ondansetron HCl (Zofran Inj) 4 mg IVP Q6 PRN PRN Reason: Nausea/Vomiting Last Admin: 08/04/18 20:42 Dose: 4 mg Pantoprazole Sodium (Protonix Inj) 40 mg IVP 0700 [facility] Pneumococcal Polyvalent Vaccine (Pneumovax 23 Vaccine) 0.5 ml IM .ONCE ONE Stop: 08/05/18 10:01 Saccharomyces Boulardii (Florastor) 250 mg PO BID [facility] Last Admin: 08/04/18 17:41 Dose: 250 mg - Labs Labs: 08/05/18 06:41 08/05/18 06:41 PT 12.4 SECONDS (9.7-12.2) H 08/04/18 10:11 INR 1.1 08/04/18 10:11 - Additional Findings Additional findings: - Constitutional Appears: Non-toxic, No Acute Distress - Head Exam Head Exam: ATRAUMATIC, NORMOCEPHALIC - Eye Exam Eye Exam: EOMI, PERRL. absent: Scleral icterus - ENT Exam ENT Exam: Mucous Membranes Moist - Neck Exam Neck exam: Positive for: Full Rom, Normal Inspection - Respiratory Exam Respiratory Exam: Clear to Auscultation Bilateral. absent: Rales, Rhonchi, Wheezes - Cardiovascular Exam Cardiovascular Exam: RRR, +S1, +S2. absent: Gallop, Rubs, Tachycardia - GI/Abdominal Exam GI & Abdominal Exam: Distension improving (baseline as per pt), Normal Bowel Sounds, Organomegaly, Soft, Mild Tenderness (LUQ and epigastric). absent: Firm, Guarding, Rebound, Rigid - Extremities Exam Extremities exam: Positive for: normal inspection. Negative for: pedal edema - Neurological Exam Neurological exam: Alert, Oriented x3 - Psychiatric Exam Psychiatric exam: Normal Affect, Normal Mood - Skin Skin Exam: Dry, Intact, Normal Color, Warm Assessment and Plan - Assessment and Plan (Free Text) Assessment: 63 year old male with PMH of HTN, cholelithiasis, and Obesity presenting with abdominal pain. CT A/P IV contrast showing thickening of distal small bowel loops and gallstones without gallbladder wall thickening or biliary dilatation. Plan: Abdominal pain Ileitis on CT Leukocytosis at 13.7 on admission, likely reactive as it resolved today. Pt without fever, tachycardia CT A/P IV contrast showing thickening of distal small bowel loops and gallstones without gallbladder wall thickening or biliary dilatation. Abdominal US complete shows cholelithiasis. Echogenic liver. Splenomegaly. Ciprofloxacin 400mg IVPB BID Metronidazole 500mg IVPB Q8H Morphine 2mg IVP Q4H PRN pain Tylenol 650mg Q6H PRN pain/fever GI, Dr. Cowan, consulted. * Patient with pain and elevated white count likely to be infectious. Chronic elevation of LFT's not previously worked up most likely due to NAFLD/CALLAWAY. r/o underlying chronic viral, autoimmune or other chronic liver disease. Given upper abdominal pain and NSAID use, h/o PUD in the past would r/o PUD, gastritis as source of upper abdominal pain. Doubt cholecystitis even though gallstones seen on CT SCan. F/u stool culture, and O&P FOBT negative, stool leukocyte negative Cdiff test not done as stool was formed Transaminitis Abdominal US results as above F/u DANETTE, ASMA, AMA, ceruloplasmin, LKM Iron, TIBC, %sat normal. Ferritin elevated at 141 Heapatitis panel negative Eosinophilia Etiology unknown at this time Potential infectious/autoimmune source Pt afebrile, not tachycardic, leukocytosis resolved 1.5, twice the limit of normal on admission Total eosinophil count is 1.2 F/u stool O and P, autoimmune studies as above Electrolyte abnormality Hypokalemia 3.4 today, likely due to vomiting and NPO status overnight Continue to monitor and replete as necessary Hx of HTN Does not take any home meds HCTZ 12.5mg PO daily PPx Protonix 40 mg PO ACB Heparin 5000 SC Q8H [facility] Florastor 250 BID
[2018-08-05] MEDS: Saccharomyces Boulardi 250 mg Cap PO SCH (09:56)
[2018-08-05] MEDS: Ciprofloxacin 400mg/200ml D5W 400 MG/200 ML BAG IVPB SCH (09:59)
[2018-08-05] MEDS ORDERED: Pneumococcal 23-Valent Vaccine IM ONE ×2 (10:00→15:30)
[2018-08-05] MEDS ORDERED: Influenza Vaccine 60 mcg/0.5 mL SYR (4YR UP) IM ONE ×2 (10:00→15:30)
[2018-08-05] MEDS ORDERED: Propofol 10 mg/ml Inj (20 ML) ONE (10:38)
[2018-08-05] MEDS ORDERED: Lactated Ringer's 1,000 ML IV ONE (10:45)
--- NOTE | 2018-08-05 11:04 | CP.PCM.PN ---
<Alicia Cortes - Last Filed: 08/05/18 10:58> Subjective - Date & Time of Evaluation Date of Evaluation: 08/05/18 Time of Evaluation: 10:59 - Subjective Subjective: Endoscopy Post-operative Progress Note for Dr. Dasilva Post-EGD: Gastritis LA Grade A esophagitis Duodenitis Biopsies taken to rule out Helicobacter pylori Advance to regular diet. Continue Protonix 40mg 30 minutes before breakfast for two weeks. Okay to discharge from GI standpoint once diet tolerated. Patient counselled prior to procedure for outpatient follow up of EGD biopsies and scheduling of colonoscopy for colorectal cancer screening and terminal ileum changes on CT A/P. Outpatient follow up of autoimmune markers for chronic elevated LFTs likely in setting of NAFLD/CALLAWAY. Objective - Vital Signs/Intake and Output Vital Signs (last 24 hours): Temp Pulse Resp BP Pulse Ox 98.2 F 71 20 132/82 97 08/05/18 07:35 08/05/18 07:35 08/05/18 07:35 08/05/18 07:35 08/05/18 07:35 Intake and Output: 08/05/18 08/05/18 06:59 18:59 Intake Total 500 Balance 500 - Medications Medications: Current Medications Acetaminophen (Tylenol 325mg Tab) 650 mg PO Q6 PRN PRN Reason: Pain, moderate (4-7) Heparin Sodium (Porcine) (Heparin) 5,000 units SC Q8 [facility] Last Admin: 08/05/18 05:12 Dose: 5,000 units Hydrochlorothiazide (Microzide) 12.5 mg PO DAILY [facility] Last Admin: 08/05/18 10:05 Dose: Not Given Metronidazole (Flagyl) 500 mg in 100 mls @ 100 mls/hr IVPB Q8H [facility]; Protocol Last Admin: 08/05/18 02:14 Dose: 100 mls/hr Ciprofloxacin (Cipro 400mg/200ml Dsw) 400 mg in 200 mls @ 133 mls/hr IVPB Q12H [facility]; Protocol Last Admin: 08/05/18 09:59 Dose: 133 mls/hr Sodium Chloride (Sodium Chloride 0.9%) 1,000 mls @ 130 mls/hr IV .Q7H42M [facility] Last Admin: 08/05/18 05:06 Dose: 130 mls/hr Morphine Sulfate (Morphine) 2 mg IVP Q4H PRN PRN Reason: Pain, severe (8-10) Last Admin: 08/04/18 14:12 Dose: 2 mg Ondansetron HCl (Zofran Inj) 4 mg IVP Q6 PRN PRN Reason: Nausea/Vomiting Last Admin: 08/04/18 20:42 Dose: 4 mg Pantoprazole Sodium (Protonix Inj) 40 mg IVP 0700 [facility] Last Admin: 08/05/18 07:55 Dose: 40 mg Saccharomyces Boulardii (Florastor) 250 mg PO BID [facility] Last Admin: 08/05/18 09:56 Dose: Not Given - Labs Labs: 08/05/18 06:41 08/05/18 06:41 PT 12.4 SECONDS (9.7-12.2) H 08/04/18 10:11 INR 1.1 08/04/18 10:11 <Sky Dasilva - Last Filed: 08/05/18 11:09> Objective - Vital Signs/Intake and Output Vital Signs (last 24 hours): Temp Pulse Resp BP Pulse Ox 98.2 F 71 20 132/82 97 08/05/18 10:45 08/05/18 10:45 08/05/18 10:45 08/05/18 10:45 08/05/18 10:45 Intake and Output: 08/05/18 08/05/18 06:59 18:59 Intake Total 500 Balance 500 - Medications Medications: Current Medications Acetaminophen (Tylenol 325mg Tab) 650 mg PO Q6 PRN PRN Reason: Pain, moderate (4-7) Heparin Sodium (Porcine) (Heparin) 5,000 units SC Q8 [facility] Last Admin: 08/05/18 05:12 Dose: 5,000 units Hydrochlorothiazide (Microzide) 12.5 mg PO DAILY [facility] Last Admin: 08/05/18 10:05 Dose: Not Given Metronidazole (Flagyl) 500 mg in 100 mls @ 100 mls/hr IVPB Q8H [facility]; Protocol Last Admin: 08/05/18 02:14 Dose: 100 mls/hr Ciprofloxacin (Cipro 400mg/200ml Dsw) 400 mg in 200 mls @ 133 mls/hr IVPB Q12H [facility]; Protocol Last Admin: 08/05/18 09:59 Dose: 133 mls/hr Sodium Chloride (Sodium Chloride 0.9%) 1,000 mls @ 130 mls/hr IV .Q7H42M [facility] Last Admin: 08/05/18 05:06 Dose: 130 mls/hr Morphine Sulfate (Morphine) 2 mg IVP Q4H PRN PRN Reason: Pain, severe (8-10) Last Admin: 08/04/18 14:12 Dose: 2 mg Ondansetron HCl (Zofran Inj) 4 mg IVP Q6 PRN PRN Reason: Nausea/Vomiting Last Admin: 08/04/18 20:42 Dose: 4 mg Pantoprazole Sodium (Protonix Inj) 40 mg IVP 0700 [facility] Last Admin: 08/05/18 07:55 Dose: 40 mg Saccharomyces Boulardii (Florastor) 250 mg PO BID [facility] Last Admin: 08/05/18 09:56 Dose: Not Given - Labs Labs: 08/05/18 06:41 08/05/18 06:41 PT 12.4 SECONDS (9.7-12.2) H 08/04/18 10:11 INR 1.1 08/04/18 10:11 Attending/Attestation - Attestation I have personally seen and examined this patient.: Yes I have fully participated in the care of the patient.: Yes I have reviewed all pertinent clinical information, including history, physical exam and plan: Yes Notes (Text): 08/05/18 11:05 EGD shows only findings of hiatal hernia with mild reflux changes. Biopsies taken as outlined for H pylori (antrum and bulb) Agree with advancing diet and stable from GI point of view for discharge. Continue PPI for two weeks. Needs colonoscopy as outpatient when clinically stable. Can be referred to [facility] to schedule in 4-8 weeks. Check serologies for etiology of liver disease and likely NAFLD/CALLAWAY. Recommendations discussed with Dr Hurtado.
[2018-08-05] MEDS ORDERED: Pantoprazole 40 mg EC Tab PO SCH (11:30)
[2018-08-05] MEDS ORDERED: Aluminum Hydroxide/Magnesium Hydroxide Susp (30 mL) PO PRN (12:00)
[2018-08-05 12:02] VITALS: TEMP 98.9
[2018-08-05 12:06] VITALS: BP 127/75; PULSE 80; RESP 21
[2018-08-05 12:36] VITALS: O2SAT 96
--- NOTE | 2018-08-05 14:08 | CP.PCM.DIS ---
Provider - Provider Date of Admission: 08/04/18 00:37 Attending physician: Nas Garcia MD Consults: 08/04/18 07:32 Gastroenterology Consult Routine Comment: Consulting Provider: Sky Dasilva Consulting Physician: Sky Dasilva Reason for Consult: ileitis, abdominal pain Time Spent in preparation of Discharge (in minutes): 35 Diagnosis - Discharge Diagnosis (1) Gastritis and duodenitis Status: Acute (2) Esophagitis Status: Acute (3) Eosinophilia Status: Acute (4) Cholelithiasis Status: Acute Hospital Course - Lab Results Lab Results: Micro Results 08/04/18 09:28 Blood-Venous Blood Culture - Preliminary NO GROWTH AFTER 24 HOURS 08/04/18 08:26 Blood-Venous Blood Culture - Preliminary NO GROWTH AFTER 24 HOURS Most Recent Lab Values WBC 9.6 K/uL (4.8-10.8) 08/05/18 06:41 RBC 4.50 Mil/uL (4.40-5.90) 08/05/18 06:41 Hgb 14.4 g/dL (12.0-18.0) 08/05/18 06:41 Hct 42.0 % (35.0-51.0) 08/05/18 06:41 MCV 93.3 fL (80.0-94.0) 08/05/18 06:41 MCH 31.9 pg (27.0-31.0) H 08/05/18 06:41 MCHC 34.2 g/dL (33.0-37.0) 08/05/18 06:41 RDW 14.2 % (11.5-14.5) 08/05/18 06:41 Plt Count 204 K/uL (130-400) 08/05/18 06:41 MPV 8.0 fL (7.2-11.7) 08/05/18 06:41 Neut % (Auto) 50.5 % (50.0-75.0) 08/05/18 06:41 Lymph % (Auto) 28.9 % (20.0-40.0) 08/05/18 06:41 [place] % (Auto) 7.6 % (0.0-10.0) 08/05/18 06:41 Eos % (Auto) 12.4 % (0.0-4.0) H 08/05/18 06:41 Baso % (Auto) 0.6 % (0.0-2.0) 08/05/18 06:41 Neut # (Auto) 4.8 K/uL (1.8-7.0) 08/05/18 06:41 Lymph # (Auto) 2.8 K/uL (1.0-4.3) 08/05/18 06:41 [place] # (Auto) 0.7 K/uL (0.0-0.8) 08/05/18 06:41 Eos # (Auto) 1.2 K/uL (0.0-0.7) H 08/05/18 06:41 Baso # (Auto) 0.1 K/uL (0.0-0.2) 08/05/18 06:41 Eosinophil Count 1.2 K/uL (0.0-0.7) H 08/05/18 06:41 PT 12.4 SECONDS (9.7-12.2) H 08/04/18 10:11 INR 1.1 08/04/18 10:11 Sodium 135 mmol/L (132-148) 08/05/18 06:41 Potassium 3.4 mmol/L (3.6-5.2) L 08/05/18 06:41 Chloride 101 mmol/L (98-107) 08/05/18 06:41 Carbon Dioxide 29 mmol/L (22-30) 08/05/18 06:41 Anion Gap 9 (10-20) L 08/05/18 06:41 BUN 9 mg/dL (9-20) 08/05/18 06:41 Creatinine 0.9 mg/dL (0.8-1.5) 08/05/18 06:41 Est GFR ( Amer) > 60 08/05/18 06:41 Est GFR (Non-Af Amer) > 60 08/05/18 06:41 POC Glucose (mg/dL) 95 mg/dL (65-110) 08/04/18 18:19 Random Glucose 91 mg/dL (75-110) 08/05/18 06:41 Calcium 8.7 mg/dl (8.6-10.4) 08/05/18 06:41 Phosphorus 3.3 mg/dL (2.5-4.5) 08/05/18 06:41 Magnesium 2.0 mg/dL (1.6-2.3) 08/05/18 06:41 Iron 136 ug/dL (49-181) 08/04/18 14:06 TIBC 327 ug/dL (250-450) 08/04/18 14:06 % Saturation 41 (20-55) 08/04/18 14:06 Ferritin 141.0 ng/mL 08/04/18 14:06 Total Bilirubin 0.6 mg/dL (0.2-1.3) 08/05/18 06:41 AST 67 U/L (17-59) H 08/05/18 06:41 ALT 88 U/L (21-72) H 08/05/18 06:41 Alkaline Phosphatase 64 U/L (38-126) 08/05/18 06:41 Total Protein 6.7 g/dL (6.3-8.3) 08/05/18 06:41 Albumin 3.7 g/dL (3.5-5.0) 08/05/18 06:41 Globulin 3.0 gm/dL (2.2-3.9) 08/05/18 06:41 Albumin/Globulin Ratio 1.2 (1.0-2.1) 08/05/18 06:41 Lipase 87 U/L (23-300) 08/03/18 20:16 Urine Color Yellow (YELLOW) 08/03/18 20:16 Urine Clarity Clear (Clear) 08/03/18 20:16 Urine pH 7.0 (5.0-8.0) 08/03/18 20:16 Ur Specific [place] 1.010 (1.003-1.030) 08/03/18 20:16 Urine Protein Negative mg/dL (NEGATIVE) 08/03/18 20:16 Urine Glucose (UA) Normal mg/dL (Normal) 08/03/18 20:16 Urine Ketones Negative mg/dL (NEGATIVE) 08/03/18 20:16 Urine Blood Negative (NEGATIVE) 08/03/18 20:16 Urine Nitrate Negative (NEGATIVE) 08/03/18 20:16 Urine Bilirubin Negative (NEGATIVE) 08/03/18 20:16 Urine Urobilinogen Normal mg/dL (0.2-1.0) 08/03/18 20:16 Ur Leukocyte Esterase Neg [place]/uL (Negative) 08/03/18 20:16 Urine WBC (Auto) 1 /hpf (0-5) 08/03/18 20:16 Urine RBC (Auto) 2 /hpf (0-3) 08/03/18 20:16 Ur Squamous Epith Cells < 1 /hpf (0-5) 08/03/18 20:16 Amorphous Sediment Few /ul (<OCC) H 08/03/18 20:16 Stool Occult Blood Negative (NEGATIVE) 08/04/18 14:14 Stool Leukocytes, Qual Negative (NEGATIVE) 08/04/18 14:20 C. difficile Ag & Toxin (NEGATIVE) 08/04/18 14:20 Hepatitis A IgM Ab Negative (NEGATIVE) 08/04/18 10:11 Hep Bs Antigen Negative (NEGATIVE) 08/04/18 10:11 Hep B Core IgM Ab Negative (NEGATIVE) 08/04/18 10:11 Hepatitis C Antibody Negative (NEGATIVE) 08/04/18 10:11 - Hospital Course Hospital Course: On admission: HPI: 63 year old male with PMHx of HTN presents to the ED for worsening L flank and LUQ abdominal pain. Patient states he's had the pain intermittently for 3 months but it became constant one week ago and severely worsened to 9/10 pain in the last 2 days. Pain is described as throbbing. It worsens with eating, drinking and movement. Treatment with Tylenol provided minimal improvement. Patient also complains of dysuria and dark/black stool. Patient denies fever, chills, nausea, vomiting, diarrhea, constipation, hematochezia, hematemesis, hematuria. Hospital course: Pt presented with minimal leukocytosis at 13.7, afebrile. FOBT negative. Abdominal XR shows constipation without obstruction. No free air. CT A/P IV contrast showing thickening of distal small bowel loops and gallstones without gallbladder wall thickening or biliary dilatation. Started on broad spectrum an tibiotics. Started on HCTZ for elevated BP. GI, Dr. Dasilva, consulted. Pt noted to have transaminitis. Abdominal US complete shows cholelithiasis. Echogenic liver. Splenomegaly. 08/05/18, pt underwent EGD which showed Gastritis, LA Grade A esophagitis, Duodenitis, Biopsies taken to rule out Helicobacter pylori. GI recommended discharge if pt is tolerating PO and asymptomatic, outpatient colonoscopy for screening, PPI for 2 weeks, followup outpatient for autoimmune markers. Iron studies normal, cdiff not performed as stool was formed. Pt with eosinophilia, O and P negative. On discharge interview, pt denies any complaints. Denies pain, tolerating diet, denies n/v/d/ hematochezia, melena, chest pain, sob, headache, dizziness, lightheadedness. This is a summary of the hospital course. Please see EMR for full details. Discharge Exam - Head Exam Head Exam: ATRAUMATIC, NORMOCEPHALIC - Eye Exam Eye Exam: EOMI, Normal appearance Additional comments: no scleral icterus - ENT Exam ENT Exam: Mucous Membranes Moist - Respiratory Exam Respiratory Exam: Clear to PA & Lateral, NORMAL BREATHING PATTERN - Cardiovascular Exam Cardiovascular Exam: REGULAR RHYTHM, +S1, +S2. absent: Tachycardia - GI/Abdominal Exam GI & Abdominal Exam: Normal Bowel Sounds, Soft. absent: Distended, Tenderness - Extremities Exam Extremities exam: normal capillary refill, pedal pulses present Additional comments: No calf tenderness, no pedal edema. - Back Exam Back exam: NORMAL INSPECTION. absent: CVA tenderness (L), CVA tenderness (R) - Neurological Exam Neurological exam: Alert, Normal Gait - Psychiatric Exam Psychiatric exam: Normal Affect, Normal Mood - Skin Skin Exam: Dry, Normal Color, Warm Discharge Plan - Discharge Medications Prescriptions: Ciprofloxacin [Cipro] 500 mg PO BID #14 tab Famotidine [Pepcid] 20 mg PO BID #28 tab Lactobacillus Acidophilus [Bacid Acidophilus] 1 cap PO BID #60 cap metroNIDAZOLE [Flagyl] 500 mg PO TID #21 tab - Follow Up Plan Condition: GOOD Disposition: HOME/ ROUTINE Instructions: Ciprofloxacin (Systemic), Metronidazole (Systemic), Stomach Ache and Stomach Upset, Famotidine, Lactobacillus, Abdominal Pain (ED) Additional Instructions: Pt is medically stable for discharge home as per Dr. Hurtado. Prescriptions needs: Bacid 1 tab by mouth twice daily, 11 am and 5 pm. #60 Ciprofloxacin 500 mg 1 tab by mouth twice daily, 8 and 8 pm. #14 Metronidazole 500 mg 1 tab by mouth three times daily, 8 am 1 pm 8 pm. #21 Pepcid 20 mg 1 tab by mouth twice daily, 8 am and 8 pm (before breakfast and dinner) Pt should follow up with Dr. Fletcher within 2 weeks of discharge. Pt should be referred to Dr. Dasilva GI, [facility] to schedule colonoscopy in 4-8 weeks. Pt will also follow up with Dr. Dasilva for serologies drawn during hospitalization. Should symptoms worse, please go to the nearest Emergency Department for further evaluation. Instructions explained to pt, who understands and agrees with discharge plan. Usted esta medicamente estable para irse a la [facility]. Hurtado Necesita las siguientes prescripciones: Bacid tome 1 tableta oralmente 2 veces al caitlyn , 11 am y 5 pm. #60 Ciprofloxacin 500 mg 1 tableta oralmente 2 veces al caitlyn , 8 y 8 pm. #14 Metronidazole 500 mg 1 tableta oralmente 3 veces al caitlyn, 8 am 1 pm 8 pm. #21 Pepcid 20 mg 1 tab tableta oralmente 2 veces al caitlyn, 8 am y 8 pm (antes del desayuno y de la arlen) Usted debe hacer martin kierra con el Dr Fletcher dentro de 2 semanas despues del rose. Al paciente se le a referido con el YONG Gomez, de la [facility] para agendar martin colonoscopia en 4-8 semanas. El paciente tambien tiene q ue hacer un seguimiento con el Dr Dasilva para los resultados de aster que le hicienron radha la hospitalizacion. Si los sintomas se empeoran, por favor vaya a la claudia de emergencias mas cercana. las instrucciones se le explicaron al paciente, quien entendio y estuvo deacuerd o con el plan del rose. Referrals: Sky Dasilva MD [Staff Provider] -
[2018-08-05 18:26] LABS: CERULOPLASMIN 28 mg/dL (18-36)
[2018-08-07] MEDS ORDERED: Influenza Vaccine 60 mcg/0.5 mL SYR (4YR UP) IM ONE (10:00)
[2018-08-07] MEDS ORDERED: Pneumococcal 23-Valent Vaccine IM ONE (10:00)
== END 2018-08-05 16:12 | disposition home or self-care (01) ==
LOC: C.ER 18:00 → C.5S 08-04 00:37 → C.3T 08-04 12:34
PROVIDERS: ADMIT Family Medicine; ATTEND Family Medicine
DX: K21.0 Gastro-esophageal reflux disease with esophagitis (principal); K44.9 Diaphragmatic hernia without obstruction or gangrene; K29.70 Gastritis, unspecified, without bleeding; K29.80 Duodenitis without bleeding; K59.00 Constipation, unspecified; K76.0 Fatty (change of) liver, not elsewhere classified; K80.20 Calculus of gallbladder without cholecystitis without obstruction; Z87.11 Personal history of peptic ulcer disease; E66.9 Obesity, unspecified; I10 Essential (primary) hypertension; D72.1 Eosinophilia
CPT/HCPCS: 36415; 43239; 74022; 74177; 76700; 80053; 80074; 81001; 82390; 82728; 82948; 83540; 83550; 83690; 83735; 84100; 85025; 85048; 85610; 86039; 86255; 86376; 87040; 87045; 87086; 87177; 87209; 87230; 88305; 89055; 90471; 90674; 90732; 93005; 96360; 96374; 97116; 97162; 99285; C9113; G0328; G0378; G8978; G8979; J0744; J1644; J1885; J2270; J2405; J3480; J7030; J7120; Q9967